=== PATIENT | male | born 1955 | race African-American/Black ===

== ENCOUNTER 2023-05-14 05:55 | Day surgery (SDC) | payer OTHER, MEDICAID ==
[~2023-05-14] VITALS: Ht 172.7 cm; Wt 91.2 kg
[~2023-05-14 05:55] MED LIST: AMLO1TAB22 PO; CLON0.1T PO; LISI20TA56 PO; METO25TA5 PO; NITR0.4S29 SL
[2023-05-14] MEDS ORDERED: ANGIOMAX 250 MG VIAL IV ONE (08:18)
[2023-05-14] MEDS ORDERED: VERAPAMIL 2.5MG/ML INJ 2ML VIAL IV ONE (08:18)
[2023-05-14] MEDS ORDERED: HEPARIN SODIUM (PORCINE) 5000 UNITS/ML 1ML VIAL ONE (08:18)
[2023-05-14] MEDS ORDERED: IODIXANOL 320MG/ML 100ML BTL IV ONE (08:19)
[2023-05-14] MEDS ORDERED: SODIUM CHL 0.9% 0 ML ONE (08:19)
[2023-05-14] MEDS ORDERED: MIDAZOLAM HCL 2MG/2ML 2ml VIAL (1mg/ml) ONE (08:19)
[2023-05-14] MEDS ORDERED: fentaNYL CITRATE 100 MCG/2 ML VL ONE (08:19)
[2023-05-14] MEDS ORDERED: LIDOCAINE 2%HCL (LOCAL ANESTH.) INJ 20ML MDV ONE (08:30)
== END 2023-05-14 11:13 | disposition home or self-care (01) ==
LOC: CATH 05:55
PROVIDERS: ATTEND Internal Medicine
DX: I25.119 Atherosclerotic heart disease of native coronary artery with unspecified angina pectoris (principal); R94.39 Abnormal result of other cardiovascular function study; I10 Essential (primary) hypertension; F17.210 Nicotine dependence, cigarettes, uncomplicated; Z95.5 Presence of coronary angioplasty implant and graft; Z88.0 Allergy status to penicillin; Z79.899 Other long term (current) drug therapy; Z90.49 Acquired absence of other specified parts of digestive tract
CPT/HCPCS: 93458; C1725; C1769; C1894; J1644; J2250; J3010; Q9967; 99152